=== PATIENT | male | born 1970 | race Caucasian/White ===

== ENCOUNTER 2018-07-02 13:09 | Emergency (ER) | payer OTHER ==
[~2018-07-02] VITALS: Ht 177.8 cm; Wt 76.0 kg
[~2018-07-02 13:09] MED LIST: ASCORBIC ACID500 M3 PO; ATENOLOL25 MG PO; CHANTIX1 EACH PO; FLOVENT DISKUS1 DISK IH; KLONOPIN1 MG PO; LISINOPRIL20 MG PO; MIRTAZAPINE30 MG PO; MOTRIN600 MG PO; PERCOCET 5/31 TABLET PO; TRAZODONE HCL50 MG PO; WELLBUTRIN SR150 MG PO; ZANTAC150 MG PO
[2018-07-02 13:10] VITALS: BP 153/90
[2018-07-02] MEDS ORDERED: FLONASE16 G1 BOTH NARES (14:42)
== END 2018-07-02 14:58 | disposition home or self-care (01) ==
LOC: EME 13:09
DX: J32.9 Chronic sinusitis, unspecified (principal); B97.89 Other viral agents as the cause of diseases classified elsewhere